=== PATIENT | male | born 1945 | race African-American/Black ===

== ENCOUNTER 2018-06-22 10:24 | Emergency (ER) | payer OTHER ==
[2018-06-22] MEDS ORDERED: IPRATROPIUM BROM 0.5MG/2.5ML ONE (11:19)
[2018-06-22] MEDS ORDERED: ALBUTEROL 2.5 MG/3 ML NEB SOL ONE (11:19)
--- NOTE | 2018-06-22 12:24 | RAD REPORT ---
EXAM DESCRIPTION: RAD - Chest Pa And Lat (2 Views) - 06/22/2018 12:18 pm CLINICAL HISTORY: COUGH Chest pain. COMPARISON: CHEST PA AND LAT 2 VIEW dated 11/23/2013 FINDINGS: Emphysematous changes are present throughout the lungs. No focal infiltrate detected. The heart is normal in size. No displaced fractures. IMPRESSION: COPD without acute process identified.
--- NOTE | 2018-06-22 13:07 | EDPHYS ---
Physician Documentation [facility] Name: Joel Covington Jr Age: 73 yrs Sex: Male : 1945 Arrival Date: 06/22/2018 Time: 10:26 Bed 13 Private MD: None, None ED Physician Luis Blanco HPI: 06/22 13:05 This 73 yrs old Black Male presents to ER via Ambulatory with complaints of Flu gs Symptoms. 13:05 The patient or guardian reports cough, that is intermittent, flu symptoms, arthralgias, gs low-grade fever, myalgias, no appetite. Onset: The symptoms/episode began/occurred 2 day(s) ago. Severity of symptoms: At their worst the symptoms were moderate, in the emergency department the symptoms are unchanged. Associated signs and symptoms: Pertinent positives: fever, Pertinent negatives: ear ache. The patient has experienced similar episodes in the past, a few times. Historical: - Allergies: 10:30 No Known Allergies; aa5 - Home Meds: 10:30 None [Active]; aa5 - PMHx: 10:30 None; aa5 - PSHx: 10:30 None; aa5 - Immunization history:: Pneumococcal vaccine is not up to date, Flu vaccine is not up to date. - Social history:: Smoking status: Patient uses tobacco products, smokes one pack cigarettes per day. - Ebola Screening: : No symptoms or risks identified at this time. ROS: 13:05 All other systems are negative. gs Exam: 13:05 Head/Face: Normocephalic, atraumatic. Eyes: Pupils equal round and reactive to light, gs extra-ocular motions intact. Lids and lashes normal. Conjunctiva and sclera are non-icteric and not injected. Cornea within normal limits. Periorbital areas with no swelling, redness, or edema. ENT: Nares patent. No nasal discharge, no septal abnormalities noted. Tympanic membranes are normal and external auditory canals are clear. Oropharynx with no redness, swelling, or masses, exudates, or evidence of obstruction, uvula midline. Mucous membranes moist. Neck: Trachea midline, no thyromegaly or masses palpated, and no cervical lymphadenopathy. Supple, full range of motion without nuchal rigidity, or vertebral point tenderness. No Meningismus. Chest/axilla: Normal chest wall appearance and motion. Nontender with no deformity. No lesions are appreciated. Cardiovascular: Regular rate and rhythm with a normal S1 and S2. No gallops, murmurs, or rubs. Normal PMI, no JVD. No pulse deficits. Abdomen/GI: Soft, non-tender, with normal bowel sounds. No distension or tympany. No guarding or rebound. No evidence of tenderness throughout. Back: No spinal tenderness. No costovertebral tenderness. Full range of motion. Skin: Warm, dry with normal turgor. Normal color with no rashes, no lesions, and no evidence of cellulitis. MS/ Extremity: Pulses equal, no cyanosis. Neurovascular intact. Full, normal range of motion. Neuro: Awake and alert, GCS 15, oriented to person, place, time, and situation. Cranial nerves II-XII grossly intact. Motor strength 5/5 in all extremities. Sensory grossly intact. Cerebellar exam normal. Normal gait. 13:05 Constitutional: The patient appears alert, awake. 13:05 Respiratory: the patient does not display signs of respiratory distress, Respirations: normal, Breath sounds: decreased breath sounds, that are mild, are heard in the left posterior lower lobe, wheezing: expiratory that is mild, is scattered. Vital Signs: 10:30 BP 142 / 89; Pulse 92; Resp 18 S; Temp 98.0(O); Pulse Ox 96% on R/A; Weight 70.31 kg aa5 (R); Height 5 ft. 9 in. (175.26 cm) (R); Pain 8/10; 11:56 BP 137 / 89; Pulse 77; Resp 14; Pulse Ox 98% ; bp 13:18 BP 152 / 84; Pulse 80; Resp 14; Pulse Ox 100% ; bp 10:30 Body Mass Index 22.89 (70.31 kg, 175.26 cm) aa5 MDM: 10:53 Patient medically screened. gs 13:05 Differential Diagnosis: Bronchitis Upper Respiratory Infection Pneumonia. Data reviewed: vital signs, nurses notes, radiologic studies. Counseling: I had a detailed discussion with the patient and/or guardian regarding: the historical points, exam findings, and any diagnostic results supporting the discharge/admit diagnosis, the need for outpatient follow up. Response to treatment: the patient's symptoms have markedly improved after treatment, and as a result, I will discharge patient. 13:08 Counseling: I had a detailed discussion with the patient and/or guardian regarding: the gs presence of at least one elevated blood pressure reading (>120/80) during this emergency department visit. Special discussion: I have referred the patient to see his PCP for further evaluation of high blood pressure. 06/22 10:58 Order name: Flu; Complete Time: 12:05 gs 06/22 10:58 Order name: XRAY Chest Pa And Lat (2 Views); Complete Time: 12:59 gs Administered Medications: 11:16 Drug: Albuterol 2.5 mg Route: Inhalation; bp 11:16 Drug: AtroVENT Aerosol 0.5 mg Route: Inhalation; bp Disposition: 06/22/18 13:07 Discharged to Home. Impression: Acute bronchitis. - Condition is Stable. - Discharge Instructions: Acute Bronchitis, Adult, Managing Your Hypertension. - Prescriptions for Prednisone 20 mg Oral Tablet - take 1 tablet by ORAL route once daily for 5 days; 5 tablet. Albuterol Sulfate 90 mcg/actuation - inhale 1-2 puff by INHALATION route every 4-6 hours; 1 Inhaler. - Medication Reconciliation Form, Thank You Letter, Antibiotic Education, Prescription Opioid Use form. - Follow up: Private Physician; When: 2 - 3 days; Reason: Re-evaluation by your physician. Signatures: Dispatcher [employer] Celeste Melara, MOY RN aa5 Luis Blanco MD MD José Lipscomb RN RN bp Corrections: (The following items were deleted from the chart) 13:18 13:07 06/22/2018 13:07 Discharged to Home. Impression: Acute bronchitis. Condition is bp Stable. Forms are Medication Reconciliation Form, Thank You Letter, Antibiotic Education, Prescription Opioid Use. Follow up: Private Physician; When: 2 - 3 days; Reason: Re-evaluation by your physician. gs
--- NOTE | 2018-06-22 13:07 | ER ---
Nurse's Notes [facility] Name: Joel Covington Jr Age: 73 yrs Sex: Male : 1945 Arrival Date: 06/22/2018 Time: 10:26 Bed 13 Private MD: None, None Diagnosis: Acute bronchitis Presentation: 06/22 10:29 Presenting complaint: Patient states: non-productive wet cough and body aches x 2-3 aa5 days ago. Transition of care: patient was not received from another setting of care. Onset of symptoms was June 2018. Risk Assessment: Do you want to hurt yourself or someone else? Patient reports no desire to harm self or others. Initial Sepsis Screen: Does the patient meet any 2 criteria? No. Patient's initial sepsis screen is negative. Does the patient have a suspected source of infection? No. Patient's initial sepsis screen is negative. Care prior to arrival: None. 10:29 Method Of Arrival: Ambulatory aa5 10:29 Acuity: ROSA 3 aa5 Triage Assessment: 10:47 General: Appears in no apparent distress. comfortable, Behavior is calm, cooperative, bp appropriate for age. Pain: Denies pain. Historical: - Allergies: 10:30 No Known Allergies; aa5 - Home Meds: 10:30 None [Active]; aa5 - PMHx: 10:30 None; aa5 - PSHx: 10:30 None; aa5 - Immunization history:: Pneumococcal vaccine is not up to date, Flu vaccine is not up to date. - Social history:: Smoking status: Patient uses tobacco products, smokes one pack cigarettes per day. - Ebola Screening: : No symptoms or risks identified at this time. Screenin:49 Abuse screen: Denies threats or abuse. Denies injuries from another. Nutritional bp screening: No deficits noted. Tuberculosis screening: No symptoms or risk factors identified. Fall Risk None identified. Assessment: 10:48 General: Appears in no apparent distress. comfortable, Behavior is calm, cooperative, bp appropriate for age. Pain: Denies pain. Neuro: Level of Consciousness is awake, alert, obeys commands, Oriented to person, place, time, situation, Appropriate for age. Cardiovascular: No deficits noted. Respiratory: Reports cough that is non-productive. GI: No signs and/or symptoms were reported involving the gastrointestinal system. : No signs and/or symptoms were reported regarding the genitourinary system. EENT: No deficits noted. Derm: No deficits noted. Musculoskeletal: Circulation, motion, and sensation intact. Range of motion: intact in all extremities. 13:16 Reassessment: PT D/C HOME AMBULATORY, DX WITH ACUTE BRONCHITIS. bp Vital Signs: 10:30 BP 142 / 89; Pulse 92; Resp 18 S; Temp 98.0(O); Pulse Ox 96% on R/A; Weight 70.31 kg aa5 (R); Height 5 ft. 9 in. (175.26 cm) (R); Pain 8/10; 11:56 BP 137 / 89; Pulse 77; Resp 14; Pulse Ox 98% ; bp 13:18 BP 152 / 84; Pulse 80; Resp 14; Pulse Ox 100% ; bp 10:30 Body Mass Index 22.89 (70.31 kg, 175.26 cm) aa5 ED Course: 10:26 Patient arrived in ED. mr 10:26 None, None is Private Physician. mr 10:30 Triage completed. aa5 10:30 Arm band placed on. aa5 10:34 José Lipscomb, MOY is Primary Nurse. bp 10:38 Luis Blanco MD is Attending Physician. 10:49 Patient has correct armband on for positive identification. Bed in low position. Call bp light in reach. Side rails up X2. 12:19 XRAY Chest Pa And Lat (2 Views) In Process Unspecified. EDMS 13:17 No provider procedures requiring assistance completed. Patient did not have IV access bp during this emergency room visit. Administered Medications: 11:16 Drug: Albuterol 2.5 mg Route: Inhalation; bp 11:16 Drug: AtroVENT Aerosol 0.5 mg Route: Inhalation; bp Outcome: 13:07 Discharge ordered by . gs 13:17 Discharged to home ambulatory. bp 13:17 Condition: stable 13:17 Discharge instructions given to patient, Instructed on discharge instructions, follow up and referral plans. medication usage, benefits of quitting smoking, Demonstrated understanding of instructions, follow-up care, medications, Prescriptions given X 2. 13:18 Patient left the ED. bp Signatures: Dispatcher [facility] Rosa M Oneill Audri, RN RN [facility] Luis Blanco MD MD gs Peltier, Brian, RN RN bp
== END 2018-06-22 13:18 | disposition home or self-care (01) ==
LOC: ER 10:24
DX: J20.9 Acute bronchitis, unspecified (principal); F17.210 Nicotine dependence, cigarettes, uncomplicated
CPT/HCPCS: 71046; 87804; 99284